=== PATIENT | female | born 1995 | race American Indian/Alaskan Native ===

== ENCOUNTER 2020-12-26 16:21 | Emergency (ER) | payer SELFPAY ==
[2020-12-26 17:19] VITALS: BP 102/69
[2020-12-26] MEDS ORDERED: HYDROcodone/ACETAMINOPHEN 5-325 MG TAB PO ONE (19:34)
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
== END 2020-12-26 19:50 | disposition home or self-care (01) ==
LOC: ED 16:21
DX: S66.811A Strain of other specified muscles, fascia and tendons at wrist and hand level, right hand, initial encounter (principal); M79.18 Myalgia, other site; M79.631 Pain in right forearm; V89.2XXA Person injured in unspecified motor-vehicle accident, traffic, initial encounter; Y93.89 Activity, other specified; Y92.488 Other paved roadways as the place of occurrence of the external cause; Y99.8 Other external cause status
CPT/HCPCS: 99281